=== PATIENT | male | born 1960 | race Caucasian/White ===

== ENCOUNTER 2024-06-10 08:09 | Outpatient (CLI) | payer SELFPAY | END 2024-06-10 23:59 | disposition home or self-care (01) | LOC: MRI02 08:09 | PROVIDERS: ATTEND Nurse Practitioner | DX: M50.123 Cervical disc disorder at C6-C7 level with radiculopathy (principal); S23.3XXA Sprain of ligaments of thoracic spine, initial encounter; M51.17 Intervertebral disc disorders with radiculopathy, lumbosacral region; S13.9XXA Sprain of joints and ligaments of unspecified parts of neck, initial encounter; R51.9 Headache, unspecified; M43.16 Spondylolisthesis, lumbar region; M48.061 Spinal stenosis, lumbar region without neurogenic claudication; X58.XXXA Exposure to other specified factors, initial encounter; Y93.9 Activity, unspecified; Y92.89 Other specified places as the place of occurrence of the external cause; Y99.8 Other external cause status | CPT/HCPCS: 70551; 72141; 72148 ==